=== PATIENT | male | born 1955 | race Caucasian/White ===

== ENCOUNTER 2019-02-02 06:16 | Day surgery (SDC) | payer OTHER ==
[2019-02-02] VITALS (12 sets, daily range): BP systolic 116–142; BP diastolic 65–84; PULSE 50–90; RESP 10–19; Ht 175.3 cm; Wt 79.6 kg
[~2019-02-02] VITALS: Ht 175.3 cm; Wt 79.6 kg
[~2019-02-02 06:16] MED LIST: NO HOME MEDS
[2019-02-02] MEDS ORDERED: CEFAZOLIN 2 GM/50 ML (PMX) 50 ML IVPB ONE (07:00)
[2019-02-02] MEDS ORDERED: SOD CHLORIDE 0.9% 1,000 ML IV SCH (07:00)
[2019-02-02] MEDS ORDERED: METH-493 PO (07:22)
[2019-02-02] MEDS ORDERED: ATEN50TA PO (07:22)
[2019-02-02] MEDS ORDERED: POLYMYXIN/BACITRACIN 1L IRRIG ONE (07:59)
--- NOTE | 2019-02-02 08:29 | PREAC ---
Date/Time of Note Date/Time of Note DATE: 02/02/19 TIME: 08:28 Anesthesia Eval and Record Evaluation Time Pre-Procedure Interview DATE: 02/02/19 TIME: 08:28 Age 63 Sex male NPO: 8 hrs Preoperative diagnosis inguinal hernia L Planned procedure L inguinal hernia repair Past Medical History Past Medical History: Includes Cardio: HTN Endo: Hypothyroid Surgery & Anesthesia Issues No known issue Meds Anticoagulation: No Beta David within 24 hr: No Reason Beta David not given: Pt. not on B-David Reported Medications Methimazole* (Methimazole*) 5 Mg Tablet, 2.5 MG PO DAILY, TAB 02/02/19 Atenolol* (Atenolol*) 50 Mg Tablet, 50 MG PO BID, #60 TAB 02/02/19 Discontinued Reported Medications [No Home Meds] No Conflict Check 12/07/13 Current Medications Sodium Chloride 1,000 ml @ 75 mls/hr [id number] IV ; Start 02/02/19 at 07:00; Stop 02/02/19 at 20:19 Meds reviewed: Yes Allergies Coded Allergies: No Known Allergy (Unverified , 12/07/13) Allergies Reviewed: Yes Labs/Studies Labs Reviewed: Reviewed by anesthesiologist test: N/A Studies: ECG Pre-procedure Exam Last vitals Vital Signs Date Temp Pulse Resp B/P (MAP) Pulse Ox O2 O2 Flow FiO2 Time Delivery Rate 02/02/19 97.5 90 16 142/65 95 Room Air 07:15 (90) Airway: Adequate mouth opening, Adequate thyromental dist Mallampati: Mallampati II (loose teeth) Teeth: Normal Lung: Normal Heart: Normal ASA Physical Status ASA physical status: 2 Emergency: None Planned Anesthetic General/MAC: ETT Nerve block: TAP (left) Pre-operative Attestations Prior to commencing anesthesia and surgery, the patient was re-evaluated, there was verification of: *The patient's identity *The results of appropriate recent lab work and preoperative vital signs *The above evaluation not changing prior to induction *Anesthetic plan, risk benefits, alternative and complications discussed with patient/family; questions answered; patient/family understands, accepts and wishes to proceed. MONIKA GAGE Feb 02, 2019 08:29
[2019-02-02] MEDS ORDERED: ONDANSETRON 4 MG INJ IV PRN (08:30)
[2019-02-02] MEDS ORDERED: ALBUTEROL 0.083% (NEB) 2.5 MG/3 ML AMP HHN PRN (08:30)
[2019-02-02] MEDS ORDERED: DIPHENHYDRAMINE 50 MG INJ IV PRN (08:30)
[2019-02-02] MEDS ORDERED: MEPERIDINE 25 MG INJ IV PRN (08:30)
[2019-02-02] MEDS ORDERED: HYDROmorphONE 1 MG/5 ML IV SYRINGE IV PRN ×3 (08:30)
[2019-02-02] MEDS ORDERED: METOCLOPRAMIDE 10 MG INJ IV PRN (08:30)
[2019-02-02] MEDS ORDERED: FENTAnyl 50 MCG/ML VIAL IV PRN ×2 (08:30)
[2019-02-02] MEDS ORDERED: DESFLURANE 15 MIN ONE (08:52)
[2019-02-02] MEDS ORDERED: SUCCINYLCHOLINE CHLORIDE 100 MG/5 ML SYG IV ONE (08:52)
[2019-02-02] MEDS ORDERED: LIDOCAINE 2% (SDV) 5 ML INJ ONE (08:52)
[2019-02-02] MEDS ORDERED: FENTAnyl 50 MCG/ML VIAL ONE (08:53)
[2019-02-02] MEDS ORDERED: ROPIVACAINE 0.5 % 30 ML VIAL ONE (08:53)
[2019-02-02] MEDS ORDERED: GLYCOPYRROLATE 0.4 MG INJ ONE (09:52)
[2019-02-02] MEDS ORDERED: NEOSTIGMINE 3 MG/3 ML SYRINGE ONE (09:52)
[2019-02-02] MEDS ORDERED: LIDOCAINE 100 MG SYRINGE ONE (09:52)
[2019-02-02] MEDS ORDERED: CEFAZOLIN 1 GM INJ ONE (09:52)
[2019-02-02] MEDS ORDERED: PROPOFOL 20 ML ONE (09:52)
--- NOTE | 2019-02-02 09:55 | OPR ---
Date/Time of Note Date/Time of Note DATE: 02/02/19 TIME: 09:53 Operative Report Procedure Date: Feb 02, 2019 Preoperative Diagnosis incarcerated left inguinal hernia Postoperative Diagnosis same Operation/Procedure Performed open left incarcerated inguinal hernia repair with large ultrapro plug hernia system mesh Surgeon see signature line Well Logging Mud Analysis Captain none Anesthesia Type: general Estimated Blood Loss: 0 - 10 ml's Transfusion none Specimen none Grafts/Implants none Complications none Pt Condition Post Procedure: stable Indications This is a 63-year-old male with an incarcerated left inguinal hernia. He requires surgical repair. Risks alternatives benefits and percent were discussed the patient. Patient expressed understanding consents to the operation. Procedure Description Patient is taken to the OR and prepped and draped in usual sterile fashion. Surgical time was performed. IV antibiotics were given. Left inguinal oblique incision made with a 10 blade. Dissection with cautery was carried onto the fascia.The external oblique fascia is open with a 15 blade. This incision is extended medially inferiorly and lateral superiorly with Metzenbaum scissors. Cord structures identified and encircled with a Dale drain. Large indirect inguinal hernia is identified and lysis of adhesions performed. The hernia is then manually reduced. The disc portion of the ultra pro hernia system mesh was then used to bolster this hernia defect and this is secured in place with a running 0 Prolene from the pubic tubercle along the shelving single limit. Superiorly the disc is secured to the internal oblique with interrupted 0 Vicryl. Onlay mesh is secured with a running 0 Prolene from the pubic tubercle along the shelving is unlimited. Superiorly the onlay mesh was secured to the internal bleed with interrupted Vicryl. Straps are created reapproximate around the cord structures with interrupted 0 Prolene to recreate the inguinal ring. Externally fascia is closed with running 3-0 Vicryl. Cinda's fascia was closed with interrupted 3-0 Vicryl. Skin is closed using a inzorb observable skin stapler. Steri-Strips and dry dressings were applied. A tap block was provided by the anesthesiologist. Tarik SCHULER Feb 02, 2019 09:55
[2019-02-02] MEDS ORDERED: HYDROCODONE/APAP (5/325) TAB PO ONE (10:00)
--- NOTE | 2019-02-02 11:27 | PAC ---
Date/Time of Note Date/Time of Note DATE: 02/02/19 TIME: 11:27 Post-Anesthesia Notes Post-Anesthesia Note Last documented vital signs Vital Signs Date Temp Pulse Resp B/P (MAP) Pulse Ox O2 O2 Flow FiO2 Time Delivery Rate 02/02/19 52 10 126/71 96 Room Air 10:40 (89) 02/02/19 6.0 10:05 02/02/19 97.7 09:55 Activity: WNL Respiratory function: WNL Cardiovascular function: WNL Mental status: Baseline Pain reasonably controlled: Yes Hydration appropriate: Yes Nausea/Vomiting absent: Yes MONIKA GAGE Feb 02, 2019 11:27
== END 2019-02-02 11:20 | disposition home or self-care (01) ==
LOC: SDS 06:16
PROVIDERS: ATTEND Surgery
DX: K40.30 Unilateral inguinal hernia, with obstruction, without gangrene, not specified as recurrent (principal); I10 Essential (primary) hypertension; E03.9 Hypothyroidism, unspecified
CPT/HCPCS: 49507; C1781; J0690; J1170; J2001; J2405; J2710; J2795; J3010; Z7512; Z7610